=== PATIENT | male | born 1975 | race Caucasian/White ===

== ENCOUNTER → 2019-08-23 17:40 | Outpatient (CLI) | payer OTHER, SELFPAY ==
--- NOTE | 2019-08-23 18:00 | XR_ITS ---
PROCEDURE: XR CHEST 2V CLINICAL HISTORY: SHORTNESS OF BREATH The chest pain and shortness of breath COMPARISON: No exams were available for comparison FINDINGS: Unremarkable cardiovascular structures. There are mild atelectatic changes overlying the heart on the lateral view in may be in the right middle lobe. No lobar consolidation or collapse. The slightly elevated right hemidiaphragm. No acute bony anomaly IMPRESSION: Mild atelectatic change otherwise negative Dictated by: Wilfredo Jaquez MD 08/23/2019 20:03 Electronically signed by Wilfredo Jaquez MD in [place] 08/23/2019 20:03
[2019-08-23 18:22] LABS: Basophils # 0.1 K/mm3 (0-0.2); Basophils % 0.7 % (0.1-2.0); Eosinophils # 0.2 K/mm3 (0.0-0.4); Eosinophils % 2.1 % (0.1-12.0); Hematocrit 42.8 % (42.0-52.0); Hemoglobin 14.9 g/dL (14.1-18.0); Lymphocytes # 2.6 K/mm3 (0.7-4.5); Lymphocytes % 27.8 % (10-50); Mean Corpuscular HGB Conc 34.8 g/dL (31.8-35.4); Mean Corpuscular Hemoglobin 29.1 pg (27.0-31.2); Mean Corpuscular Volume 83.8 fl (80-94); Mean Platelet Volume 10.2 fl (7.4-10.4); Monocytes # 0.5 K/mm3 (0.1-1.0); Monocytes % 5.6 % (1.7-9.3); Neutrophils # 5.9 K/mm3 (1.8-7.8); Neutrophils % 63.8 % (37.0-80.0); Platelet Count 222 K/mm3 (142-424); Red Blood Count 5.11 M/mm3 (4.60-6.20); Red Cell Distribution Width 13.9 % (11.5-17.5); White Blood Count 9.3 K/mm3 (4.8-10.8)
[2019-08-23 18:26] LABS: Chloride 107 mmol/L (98-107); Potassium 4.1 mmoL/L (3.5-5.1); Sodium 138 mmol/L (136-145)
[2019-08-23 18:29] LABS: Alanine Aminotransferase 45 U/L (12-78); Albumin Level 4.3 g/dl (3.5-5.0); Albumin/Globulin Ratio 1.2 (1.1-1.8); Alkaline Phosphatase 134 U/L (38-126); Anion Gap 10.1 mEq/L (5-15); Aspartate Amino Transferase 37 U/L (17-59); Bilirubin,Total 0.6 mg/dl (0.2-1.3); Blood Urea Nitrogen 18 mg/dl (9-20); Carbon Dioxide 25 mmol/L (22.0-30.0); Estimated Glomerular Filt Rate 92 ml/min (>60); GFR (African American) 111 ML/MIN (>60); Globulin 3.5 g/dL (1.3-3.2); Total Protein,Serum 7.8 g/dl (6.3-8.2)
[2019-08-23 18:30] LABS: Glucose 101 mg/dl (74-100)
[2019-08-23 18:42] LABS: Troponin I < 0.01 ng/ml (0.00-0.034)
[2019-08-23 18:47] LABS: D-Dimer < 100 ng/mL (0-400)
== END ==
PROVIDERS: PCP Nurse Practitioner; Visit Provider Nurse Practitioner
DX: R07.9 Chest pain, unspecified (principal)
CPT/HCPCS: 36415; 71046; 80053; 84484; 85025; 85378

== ENCOUNTER → 2019-08-26 09:58 | Outpatient (CLI) | payer OTHER, SELFPAY ==
--- NOTE | 2019-08-26 10:01 | CA_ITS ---
APPROVED REPORT EXAM: Comprehensive 2D, Doppler, and color-flow Echocardiogram Registered Travel Nurse: Roeslia Mendoza RDCS Ht: 6 ft 0 in Wt: 228lbs BSA: 2.25 BP: 110/60 mmHg Indications: SOA,CP 2D Dimensions LVOT 1.75 cm (M/F) 1.5-2.5 M-Mode Dimensions RVDd 2.84 cm (0.9-2.6) LVDd 5.93 cm (3.5-5.7) LVDs 4.11 cm (3.5-5.7) IVSd 0.81 cm (0.6-1.1) PWd 0.97 cm (0.6-1.1) EF (Teich) 57.40% FS 30.70% EDV (Teich) 175.20 mL ESV (Teich) 74.70 mL LV Diastology E/A Ratio 1.16 Mitral Valve MV A Velocity 55.00 (40-130 cm/s) Left Ventricle Left atrium is normal size, left ventricle is normal size, there is no concentric left ventricular hypertrophy, visually estimated ejection fraction 55% with no regional wall motion abnormality, diastolic parameters are within normal range. Right Ventricle Right atrium and right ventricle are normal size and contractility. Aortic Valve Aortic valve is normal, there is no aortic stenosis aortic insufficiency. Mitral Valve Mitral valve is grossly normal, there is trace mitral regurgitation. Tricuspid Valve Tricuspid valve is grossly normal, there is trace tricuspid regurgitation, tricuspid regurgitation jet velocity is inadequate for calculation of the right ventricular systolic pressure. Pulmonic Valve Pulmonic valve is poorly visualized. Great Vessels Aortic root is normal size. Pericardium No significant pericardial effusion noted. Conclusion 1. Normal left ventricular size, preserved left ventricular systolic function, visually estimated ejection fraction 55% with no regional wall motion abnormality, diastolic parameters are within normal range. 2. Trace mitral and tricuspid regurgitation. 3. No significant pericardial effusion noted. Electronically signed by : Doni Baez, 08/26/2019 13:05:57
== END ==
PROVIDERS: PCP Nurse Practitioner; Visit Provider Nurse Practitioner
DX: R07.9 Chest pain, unspecified (principal); R06.02 Shortness of breath
CPT/HCPCS: 93306

== ENCOUNTER 2020-04-15 12:19 | Emergency (ER) | payer OTHER, SELFPAY ==
--- NOTE | 2020-04-15 12:08 | ECG_ITS ---
APPROVED REPORT Exam: Resting ECG HR:109 bpm ECG Measurements Heart Rate 109 AXES UT 132 P 33 QRSd 76 QRS 21 QT 318 T -11 QTc 428 Conclusion Sinus tachycardia Nonspecific ST abnormality Abnormal ECG Electronically signed by : Keanu Carrillo, 04/15/2020 19:33:33
[2020-04-15 12:19] VITALS: BP 122/87; PULSE 114; RESP 28; TEMP 39.3; O2SAT 96; BMI 27.2
--- NOTE | 2020-04-15 12:37 | XR_ITS ---
PROCEDURE: XR CHEST PORTABLE Referring Doctor: Logan Kelly Patient Age:44Y CLINICAL HISTORY: covid COMPARISON: CR XR CHEST 2V from 08/23/2019 FINDINGS: AP portable upright chest today is compared to previous chest film August 2019 Of there is an area of atelectasis and patchy airspace disease/infiltrate towards right lung base but this is projected over the anterior 4th rib end and just above the right hemidiaphragm.. The right upper lung field appears clear. Left chest. Upper normal markings at left lung base project over the anterior 5th rib possible minor atelectasis here; otherwise left lung appears well expanded and clear with nothing definitely acute on the left. The heart is normal in size. Frances and mediastinal structures satisfactory, stable. Chest wall unremarkable no pneumothorax. No pleural effusion. Subtle tiny 5 mm circumscribed nodular density is projected over the anterior 1st interspace (and posterior 3rd rib). Barely appreciable may be small granuloma but should be addressed on subsequent studies IMPRESSION: 1..Right lower lobe airspace disease: Atelectasis and patchy infiltrate right lung base 2..Faint 5 mm nodule right upper lung field-of doubtful significance but will benefit from follow-up as well Dictated by: Mirza Jaquez MD 04/15/2020 13:19 Mirza Jaquez MD in [place] 04/15/2020 13:19
--- NOTE | 2020-04-15 12:42 | [facility].EDGENADL ---
ED Disposition Clinical Impression: COVID-19 Disposition: Home, Self-Care Condition on Discharge: Good Prescriptions: Ondansetron [Zofran 4mg ODT] 4 mg PO Q6 PRN #10 tab.rapdis PRN Reason: Nausea Prescription Printed Referrals: Taylor Mondragon APRN [Primary Care Provider] - 3 days - Critical Care Critical Care Time: No Attestation: On 04/15/20, the high probability of a clinically significant, sudden or life threatening deterioration of the following system(s) required my full and direct attention, intervention and personal management. The time I documented below is in addition to time spent performing reported procedures but includes the following listed in this critical care notation. Medical Decision Making - Medical Records Medical records reviewed: Yes: I reviewed the patient's medical records. - Ankit Inquiry Pt receiving controlled substance: No Vital Signs: 04/15/20 12:19 Temperature 102.8 F H Temperature Source Oral Pulse Rate [Radial] 114 H Respiratory Rate 28 H Blood Pressure [Right Arm] 122/87 Blood Pressure Mean [Right Arm] 98 Blood Pressure Position [Right Arm] Sitting 02 Sat by Pulse Oximetry 96 Oxygen Delivery Method Room Air Orders (Tests/Meds): ED MEDICATIONS Discontinued Medications Generic Name Dose Route Start Last Admin Trade Name Freq PRN Reason Stop Dose Admin Ibuprofen 600 mg 04/15/20 12:37 Ibuprofen 600 Mg Tablet PO 04/15/20 12:38 ONCE ONE ORDERS Category Date Time Status Chest XR -- portable [XR chest portable] Stat Exams 04/15/20 12:37 Taken - Radiology Data #1 Image(s): Chest Image Reviewed: Yes I reviewed the patient's radiology image Bilateral patchy infiltrates at the bases - ECG Data Tracing #1 EKG at 1208 shows a sinus rhythm with a rate of 109. No acute ST segment elevation or depression. No hyperacute T waves. Normal intervals. EKG interpreted by me. Medical Decision Narrative: Patient with tachycardia, but temperature of 102. Had good relief with his symptoms with ibuprofen last night, so was given that here. Chest pain associated with vomiting and coughing, unlikely to be acute coronary syndrome. Oxygenation is 96% and no shortness of breath currently, unlikely PE. This is all likely to be related to his Covid infection. EKG reassuring with no acute ischemic findings. Patient with no respiratory distress and clear chest x-ray other patchiness at the bases consistent with COVID infection. Discharged home with advised to use ibuprofen/Tylenol for symptom control, will give Zofran for nausea and advised follow-up with PCP via telehealth in 2 to 3 days for reevaluation. General Adult HPI - General Chief complaint: Shortness of Breath/Dyspnea Stated complaint: Chest Pain Time Seen by Provider: 04/15/20 12:42 Mode of Arrival: Ambulatory Source of Information: Patient Limitations: No Limitations Description of Symptoms (Recalled from ER Triage Doc. by RN): to ed per pvt car with c/o chest pain, sob, vomiting x 2 days pt states tested +covid tues. - History of Present Illness HPI narrative: This is a 44-year-old male with no significant past medical history who presents to the emergency department for evaluation of cough, fever, chest pain that started while he was vomiting earlier this morning. Patient tested positive for Covid 4 days ago, started having symptoms 2 days ago with dry cough and nausea, generalized body aches. He took Advil last night with good relief of symptoms. He has no known history of coronary artery disease. He is not currently short of breath, but was short of breath when he started vomiting earlier this morning. His chest pain is not there all the time and is primarily there when he coughs, and then became worse with his episode of vomiting this morning. His pain has steadily improved since his vomiting stopped. He is worried that he may have pulled chest muscle. - Relat
[2020-04-15 13:22] VITALS: BP 140/74; PULSE 107; RESP 26; TEMP 38.8; O2SAT 98
== END 2020-04-15 13:23 | disposition home or self-care (01) ==
PROVIDERS: Emergency Provider Emergency Medicine; PCP Nurse Practitioner
DX: U07.1 COVID-19 (principal); R07.9 Chest pain, unspecified; R50.9 Fever, unspecified
CPT/HCPCS: 71045; 93005; 99282

== ENCOUNTER → 2020-06-12 13:12 | Outpatient (CLI) | payer OTHER, SELFPAY ==
--- NOTE | 2020-06-12 13:19 | CT_ITS ---
PROCEDURE: CT CHEST WO/W CON CLINCAL INDICATION: PULMONARY NODULE Seen on CXR 04/15/[address] COMPARISON: CR XR CHEST PORTABLE from 04/15/2020 TECHNIQUE: IV Contrast: 75ml Isovue 370 Axial images obtained with sagittal and coronal reformats. All CT scans at the facility use one or more dose reduction, viz: automated exposure control, ma/kV adjustment per patient size (including targeted exams where dose is matched to indication, i.e. head), or iterative reconstruction technique. FINDINGS: HEART AND MEDIASTINAL STRUCTURES: Coronary artery calcification and/or stent noted in the LAD. No mediastinal or hilar mass. No evidence of aortic aneurysm or dissection. No central pulmonary embolus. LUNGS AND PLEURAL SPACES: There is minimal ground-glass attenuation in the right upper lobe posteriorly which may have represent the radiographic abnormality. No apical nodule is evident. There is small nodular opacity in the right minor fissure medially and laterally and may be due to small Sameera fissural lymph nodes. There is a calcified granuloma in the right lung base medially. Faint areas of ground-glass attenuation noted in the right lower lobe posteriorly. A 5 mm nodular opacity is present in the right lower lobe posterior laterally. Minimal atelectatic or fibrotic changes are noted in the lingula a. BONY STRUCTURES: No acute bony abnormalities apparent. UPPER ABDOMEN: Unremarkable. ADDITIONAL FINDINGS: No other significant abnormalities. IMPRESSION: 1. No highly suspicious nodules are evident. 2. Scattered ground-glass opacities. These areas are nonspecific and could be seen with inflammatory/infectious process. 3. Small fissural nodules are present on the right and there is a 5 mm nodular opacity in the right lower lobe. Consider six-month follow-up to confirm stability of the right lower lobe nodule. Dictated by: Wilfredo Jaquez MD 06/13/2020 12:13 Wilfredo Jaquez MD in [place] 06/13/2020 12:13
== END ==
PROVIDERS: PCP Nurse Practitioner; Visit Provider Nurse Practitioner
DX: R91.1 Solitary pulmonary nodule (principal)
CPT/HCPCS: 71270; Q9967

== ENCOUNTER → 2020-06-21 09:12 | Outpatient (CLI) | payer OTHER, SELFPAY ==
[2020-06-21 10:25] LABS: Coronavirus 19 IgG Antibody Positive (Negative); Coronavirus 19 IgM Antibody Negative (Negative)
== END ==
PROVIDERS: Visit Provider Surgery
DX: Z01.812 Encounter for preprocedural laboratory examination (principal); Z20.822 Contact with and (suspected) exposure to COVID-19; L72.3 Sebaceous cyst
CPT/HCPCS: 36415; 86328

== ENCOUNTER 2020-06-23 07:03 | Day surgery (SDC) | payer OTHER, SELFPAY ==
[2020-06-23 08:46] VITALS: BP 137/104; PULSE 61; RESP 14; TEMP 36.6; O2SAT 100; BMI 29.8
--- NOTE | 2020-06-23 09:29 | [facility].OPNOTE ---
Date of procedure: 06/23/20 Pre-op Diagnosis:: Recurrent posterior neck sebaceous cyst (2cm) Post-op Diagnosis:: Same Procedure performed:: Excision of 2 cm posterior neck sebaceous cyst (recurrent) Surgeon:: Twin Penny MD Anesthesia: local Estimated blood loss (mL): 10 Operative findings:: 2cm complex cyst Operative note:: After informed consent was obtained the patient was taken to the procedure room and maintained in the seated position. The posterior neck was prepped and draped in a sterile fashion. After infiltration with local anesthetic an elliptical incision was made around the lesion. The deep subcutaneous tissue was dissected with a combination of scalpel and electrocautery. A somewhat lobulated/complex cystic lesion was excised in toto and passed off for pathologic evaluation. Electrocautery was utilized to achieve hemostasis. Skin was reapproximated with interrupted 4-0 nylon. Dressings were applied and the patient was discharged in stable condition. Condition: stable Disposition: no change Specimens:: Posterior neck cyst Complications:: No immediate
[2020-06-23 09:30] VITALS: BP 144/90; PULSE 54; RESP 18; TEMP 36.3; O2SAT 100
[2020-06-23 09:40] VITALS: BP 144/90; PULSE 54; RESP 18; TEMP 36.3; O2SAT 100
== END 2020-06-23 09:40 | disposition home or self-care (01) ==
LOC: OUTP 07:05
PROVIDERS: PCP Nurse Practitioner; Visit Provider Surgery
PROC: (CPT 11422; principal; 2020-06-23 08:30)
DX: L72.3 Sebaceous cyst (principal)
CPT/HCPCS: 11422